=== PATIENT | female | born 1990 | race Caucasian/White ===

== ENCOUNTER → 2020-10-17 | Outpatient (CLI) | payer OTHER ==
--- NOTE | 2020-10-17 13:13 | REPVR ---
PROCEDURE INFORMATION: Exam: MR Lumbar Spine Without Contrast Exam date and time: 10/17/2020 10:19 AM Age: 30 years old Clinical indication: Condition or disease; Disc displacement; Lumbar region TECHNIQUE: Imaging protocol: Multiplanar magnetic resonance images of the lumbar spine without intravenous contrast. COMPARISON: No relevant prior studies available. FINDINGS: Vertebrae: Straightening of the normal cervical lordosis may be related to patient position or due to muscle spasm. There is preservation of vertebral body height. Spinal cord: Normal signal. No cord compression. The conus extends to L1-L2. L1-L2: There is a very small bulge without mass effect. No significant spinal canal stenosis. No neural foraminal stenosis. L2-L3: No significant disc disease. There are mild facet joint degenerative changes. No significant spinal canal stenosis. No neural foraminal stenosis. L3-L4: No significant disc disease. There are mild facet joint degenerative changes and ligamentum flavum hypertrophy. No significant spinal canal stenosis. No neural foraminal stenosis. L4-L5: There is a bulge flattens the sac. There are mild facet joint and changes and ligament flavum hypertrophy. No significant spinal canal stenosis. No neural foraminal stenosis. 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 No significant spinal canal stenosis. No neural foraminal stenosis. Soft tissues: Unremarkable. IMPRESSION: 1. 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 2. There is no central stenosis. Electronically signed by: Marcos Hodgson On 10/17/2020 13:13:13 PM
== END ==
LOC: M RAD 09:40
PROVIDERS: ATTEND Physician Assistant
DX: M51.26 Other intervertebral disc displacement, lumbar region (principal)